=== PATIENT | male | born 1945 | race Caucasian/White ===

== ENCOUNTER → 2021-01-19 | Outpatient (CLI) | payer BC | END | disposition home or self-care (01) | LOC: SHCH 15:24 | PROVIDERS: ATTEND Student in an Organized Health Care Education/Training Program | DX: I36.1 Nonrheumatic tricuspid (valve) insufficiency (principal); E78.5 Hyperlipidemia, unspecified | CPT/HCPCS: 93306; 93356 ==

== ENCOUNTER 2021-02-23 06:44 | Day surgery (SDC) | payer BC ==
[2021-02-21 11:54] LABS: BASOPHILS % (AUTO) 0.9 % (0.0-5.0); EOSINOPHILS % (AUTO) 2.7 % (0.0-8.0); HEMATOCRIT 42.6 % (42-54); MEAN CORPUSCULAR HEMOGLOBIN 31.6 pg (27.0-33.0); MEAN CORPUSCULAR HGB CONC 32.4 g/dL (32.0-36.0); MEAN CORPUSCULAR VOLUME 97.5 fL (79-99); MONOCYTES % (AUTO) 6.7 % (3.0-13.0); NEUTROPHILS % (AUTO) 58.4 % (40.0-77.0); PLATELET COUNT (AUTO) 254 K/uL (130-400); RED BLOOD CELL COUNT(AUTO) 4.37 MIL/uL (4.50-6.20); RED CELL DISTRIBUTION WIDTH 12.9 % (11.0-15.5); WHITE BLOOD COUNT (AUTO) 7.8 K/uL (4.8-10.8)
[2021-02-21 12:06] LABS: CREATININE 1.2 mg/dL (0.5-1.5); POTASSIUM 4.4 mmol/L (3.5-5.1)
[2021-02-21 12:07] LABS: INR 1.03 (0.85-1.15); PROTHROMBIN TIME 11.2 SEC (9.6-11.6)
[2021-02-21 12:08] LABS: PARTIAL THROMBOPLASTIN TIME 28.5 SEC (26.3-35.5)
[2021-02-21 12:44] LABS: APPEARANCE,URINE Clear (CLEAR); BILIRUBIN,URINE Negative (NEGATIVE); COLOR,URINE Yellow (YELLOW); GLUCOSE, URINE (UA) Negative (NEGATIVE); KETONES,URINE Negative (NEGATIVE); LEUKOCYTE ESTERASE ,URINE Negative (NEGATIVE); NITRATE,URINE Negative (NEGATIVE); OCCULT BLOOD,URINE Negative (NEGATIVE); PROTEIN,URINE Negative (NEGATIVE); UROBILINOGEN,URINE 0.2 mg/dL (0.2-1.0)
[2021-02-22 11:27] VITALS: BP 133/71
[~2021-02-23] VITALS: Ht 182.9 cm; Wt 90.4 kg
[2021-02-23] VITALS (11 sets, daily range): BP systolic 106–139; BP diastolic 48–75
[~2021-02-23 06:44] MED LIST: ASPI-1443 PO; CETI-89 PO; DIAZ10TA4 PO; LEVO25CA4 PO; OMEP40CA21 PO; SIMV10TA97 PO; TAMS-1 PO; ZINC50TA64 PO; ZOLP5TAB8 PO; vitamin d PO
[2021-02-23] MEDS ORDERED: 0.9%NACL 1000ML 1,000 ML IV SCH ×2 (08:00→10:00)
[2021-02-23] MEDS ORDERED: IOHEXOL 350 MG/ML 100ML INFUS..BTL IV ONE (08:17)
[2021-02-23] MEDS ORDERED: IOHEXOL-350 50ML VIAL IV ONE (08:17)
[2021-02-23] MEDS ORDERED: LIDOCAINE HCL 400MG/20ML VIAL ONE (08:17)
[2021-02-23] MEDS ORDERED: NITROGLYCERIN 2 MG VIAL IV ONE (08:17)
[2021-02-23] MEDS ORDERED: FENTANYL CITRATE PF 50 MCG/1 ML 2ML VIAL ONE (08:27)
[2021-02-23] MEDS ORDERED: MIDAZOLAM HCL 1 MG/ML 2ML VIAL ONE (08:27)
[2021-02-23] MEDS ORDERED: DiphenhydrAMINE HCL 50 MG/ML VIAL ONE (09:05)
[2021-02-23] MEDS ORDERED: DEXTROSE 50%-WATER 50 ML DISP.SYRIN IV PRN (10:00)
[2021-02-23] MEDS ORDERED: GLUCAGON 1MG KIT 1 MG ML IM PRN (10:00)
[2021-02-23] MEDS ORDERED: ACETAMINOPHEN WITH CODEINE 1 TAB TAB ONE (11:22)
[2021-02-23] MEDS ORDERED: ACETAMINOPHEN WITH CODEINE 1 TAB TAB PO PRN ×2 (11:30)
== END 2021-02-23 16:00 | disposition home or self-care (01) ==
LOC: DAH 06:44
PROVIDERS: ATTEND Student in an Organized Health Care Education/Training Program
DX: R94.39 Abnormal result of other cardiovascular function study (principal); I20.9 Angina pectoris, unspecified; K21.9 Gastro-esophageal reflux disease without esophagitis; E78.5 Hyperlipidemia, unspecified; E03.9 Hypothyroidism, unspecified; Z88.0 Allergy status to penicillin; Z98.890 Other specified postprocedural states; Z79.82 Long term (current) use of aspirin; Z79.899 Other long term (current) drug therapy; Z79.01 Long term (current) use of anticoagulants
CPT/HCPCS: 36415; 71045; 80048; 81003; 85025; 85610; 85730; 93005; 93454; A4215; A4216; A4221; A4222; A4223 ×3; A4606; A4663; C1760; C1894 ×2; J1200; J1644; J2250; J3010; J3490 ×2; J7030; Q9965; Q9967 ×2; 99156; 99157